=== PATIENT | male | born 1945 | race Caucasian/White ===

== ENCOUNTER 2021-04-19 16:52 | Outpatient (CLI) | payer OTHER | END 2021-04-19 16:53 | disposition home or self-care (01) | LOC: COV 16:52 | PROVIDERS: ATTEND Specialist | DX: Z01.812 Encounter for preprocedural laboratory examination (principal); Z20.822 Contact with and (suspected) exposure to COVID-19 ==

== ENCOUNTER 2022-03-10 17:39 | Emergency (ER) | payer MEDICARE, OTHER ==
[2022-03-10 18:13] VITALS: BP 152/74
[2022-03-10] MEDS ORDERED: NIRMATRELVIR/RITONAVIR PREPACK PO STA (18:45)
--- NOTE | 2022-03-10 18:46 | ED Physician Documentation ---
PD HPI URI - Stated complaint Stated Complaint: c+,fever,tired - Chief complaint Chief Complaint: Resp - History obtained from History obtained from: Patient (76-year-old gentleman fully vaccinated boosted against COVID got sick yesterday with headache, fevers, body aches, mild cough. Tested positive for COVID today and is here for therapeutics. No shortness of breath.) Review of Systems Constitutional: reports: Fever, Chills, Myalgias, Fatigue Nose: reports: Rhinorrhea / runny nose Throat: reports: Sore throat PD ED PE NORMAL - Vitals Vital signs reviewed: Yes - General General: Alert and oriented X 3, No acute distress - Respiratory Respiratory: No respiratory distress - Derm Derm: Normal color, Warm and dry - Neuro Neuro: Alert and oriented X 3, Normal speech Results - Vitals Vitals: Vital Signs - 24 hr 03/10/22 03/10/22 18:10 18:14 Temperature 3.2 C L 37.8 C Heart Rate 93 Respiratory 18 Rate Blood Pressure 152/74 H O2 Saturation 98 Oxygen O2 Source Room air PD MEDICAL DECISION MAKING - ED course ED course: 76-year-old gentleman with symptomatic COVID here requesting antiviral therapy and paxlovid was dispensed. Departure - Departure Disposition: 01 Home, Self Care Clinical Impression: COVID-19 Condition: Good Record reviewed to determine appropriate education?: Yes Instructions: ED Viral Syndrome Comments: As discussed, you should discontinue the simvastatin and metoprolol while on the antiviral medication. Follow-up with your doctor for ongoing symptoms of low heart rate. Return for new or worsening symptoms. Discharge Date/Time: 03/10/22 19:19
== END 2022-03-10 19:19 | disposition home or self-care (01) ==
LOC: ED 17:39
DX: U07.1 COVID-19 (principal)
CPT/HCPCS: 99281; 99282; J3490

== ENCOUNTER 2022-07-30 09:52 | Outpatient (CLI) | payer OTHER ==
--- NOTE | 2022-08-07 11:08 | CT Report ---
PROCEDURE: CHEST WO INDICATIONS: ABN FINDINGS ON NM PERFUSION STUDY TECHNIQUE: Noncontrast 1mm axial images were acquired from the pulmonary apices to the posterior costophrenic an gles. Axial 5 mm soft tissue kernel reconstructions were performed as well as 8 mm axial MIP and cor onal and sagittal 5 mm reformations. For radiation dose reduction, the following was used: automate d exposure control, adjustment of mA and/or kV according to patient size. COMPARISON: Not available for comparison FINDINGS: Image quality: Motion degraded Lungs and pleura: Scattered scarring and mild emphysema. Suspected basal atelectasis. Pulmonary nodules are present, most notable in the left lower lobe measuring 9 x 7 mm (lung series im age 89. Other nodules are present, as seen on maximum intensity projection images, for example image 100 on the left. Mediastinum, heart, and esophagus: Coronary artery calcifications. No hiatal hernia. Prominent, non-s pecific lymph nodes are present that are not enlarged by size criteria. Chest wall and thyroid: Thyroid is within normal limits. Upper abdomen: Cholelithiasis, with fundal wall thickening, not well evaluated on this study. Right u pper pole renal cyst, partially visualized. Focal pancreatic tail calcification. Bones: No acute or suspicious osseous abnormality. IMPRESSION: Largest pulmonary nodule in the left lower lobe measuring 9 x [address] in 3 months. PE T/CT or tissue sampling could also be pursued depending on clinical context. Of note, reported abnormality on prior nuclear medicine perfusion study is not available for comparis on. This would be helpful to establish stability, in addition to any further remote imaging. Other incidental findings above can also be followed on subsequent imaging. Reviewed by: Venkat Pham MD on 08/07/2022 11:06 AM PDT Approved by: Venkat Pham MD on 08/07/2022 11:06 AM PDT Station ID: [id number]
== END 2022-07-30 09:53 | disposition home or self-care (01) ==
LOC: DI 09:52
PROVIDERS: ATTEND Internal Medicine
DX: R91.8 Other nonspecific abnormal finding of lung field (principal); Z87.891 Personal history of nicotine dependence

== ENCOUNTER 2022-10-13 12:54 | Outpatient (CLI) | payer MEDICARE, OTHER ==
--- NOTE | 2022-10-13 14:07 | Ultrasound Report ---
PROCEDURE: Pelvic Limited or F/U INDICATIONS: RIGHT GROIN HERNIA TECHNIQUE: Real-time transabdominal scanning was performed of the right inguinal region. COMPARISON: None. FINDINGS: There are bilateral fat-containing inguinal hernias. The defect on the right measures 1.4 cm in maximal dimension with a fat-containing reducible hernia m easuring approximately 7.1 x 2.7 x 1.2 cm. The defect on the left measures 0.8 cm with a reducible fat-containing hernia measuring 1.7 x 1.6 x 1 .1 cm. IMPRESSION: 1. Bilateral fat-containing reducible inguinal hernias as described above right greater than left. Reviewed by: Diego John MD on 10/13/2022 2:05 PM PST Approved by: Diego John MD on 10/13/2022 2:05 PM PST Station ID: [id number]
== END 2022-10-13 12:55 | disposition home or self-care (01) ==
LOC: DI 12:54
DX: K40.20 Bilateral inguinal hernia, without obstruction or gangrene, not specified as recurrent (principal)

== ENCOUNTER 2023-11-23 07:47 | Outpatient (CLI) | payer OTHER ==
[2023-11-23 08:20] LABS: CREATININE 1.1 mg/dL (0.6-1.3)
[2023-11-23] MEDS ORDERED: iohexoL-300 100 ML VIAL ONE (08:27)
--- NOTE | 2023-11-23 10:23 | CT Report ---
PROCEDURE: IVP INDICATIONS: HEMATURIA CONTRAST: 140ml omni 300 TECHNIQUE: A [address] of the abdomen and pelvis was performed. Non-contrast and contrast images were recorded and evaluated at appropriate window settings. Images were recorded and evaluated at appropriate windo w settings. Reformats: coronal and sagittal. For radiation dose reduction, the following was used: au tomated exposure control, adjustment of convex left scoliosis. 3 interval casting with improved align ment at the tibia and fibula fractures. MA and/or kV according to patient size. COMPARISON: No prior images available for comparison at time of dictation. FINDINGS: Image quality: Diagnostic. Urinary system: Both kidneys are normal in size. No hydronephrosis or nephrolithiasis on pre-contras t images. Right kidney shows 2 cystic structures, incompletely evaluated and IV contrast, the larges t one most exophytic and measuring 9.9 cm in size. The left kidney shows exophytic cystic lesion valeria uring 3.7 cm in size., No solid masses or complex cysts which require follow up. The opacified renal calyces and ureters appear normal, without filling defect. Bladder wall thickness is normal, account ing for underdistention. No calcified bladder stones. The enlarged prostate projects into the bladder . OTHER Lung bases and heart: 5 mm solid pulmonary nodule left lower lobe (19/8). Dependent lung changes als o noted Liver: No solid mass. Gallbladder and biliary tree: At least 2 calcified gallstones are seen measuring 2 cm in size. No no ncontrast CT evidence of pericholecystic fluid or gallbladder wall thickening. Spleen: No splenomegaly. Pancreas: No pancreatic ductal dilation. Adrenals: No adrenal nodule. Bowel and peritoneum: No bowel distension. No pathologic free fluid. Abdominal Lymph nodes: No central or retroperitoneal adenopathy. Vessels: Unremarkable. Reproductive organs: Coarse calcifications of enlarged prostate Pelvic Lymph nodes: Unremarkable. Bones: No aggressive osseous abnormality. 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 Other: None. IMPRESSION: 1. No renal stones or hydronephrosis. The base of the enlarged prostate projects into the bladder. 2. Bilateral renal cystic structure, likely incidental simple cysts, the largest one on the right jessica suring 9.9 cm. 3. A 5 mm solid nodule at the left lung base; Although this nodule might have been there on prior marilyn dies from 2021, no prior images are available at the time of dictation. For low-risk patient, for a low risk patient: Follow-up CT at 12 mo; if no change, no further follow- up needed. For high risk patient:Initial follow-up CT at 6-12 mo, then 18-24 mo if no change. 4. Cholelithiasis Reviewed by: Barron Kenney MD on 11/23/2023 10:22 AM PST Approved by: Barron Kenney MD on 11/23/2023 10:22 AM PST Station ID: [id number]
[2023-11-23] MEDS ORDERED: iohexoL-300 100 ML VIAL IVP ONE (19:18)
== END 2023-11-23 07:48 | disposition home or self-care (01) ==
LOC: LAB 07:47
PROVIDERS: ATTEND Internal Medicine
DX: R31.0 Gross hematuria (principal); N40.0 Benign prostatic hyperplasia without lower urinary tract symptoms; R93.422 Abnormal radiologic findings on diagnostic imaging of left kidney; R93.421 Abnormal radiologic findings on diagnostic imaging of right kidney; R91.1 Solitary pulmonary nodule; K80.20 Calculus of gallbladder without cholecystitis without obstruction
CPT/HCPCS: 36415; 74178; 82565; Q9967